=== PATIENT | female | born 1935 | race Two or more races ===

== ENCOUNTER 2021-12-07 11:13 | Inpatient (IN) | payer OTHER ==
[~2021-12-07] VITALS: Ht 167.6 cm; Wt 92.9 kg
[~2021-12-07 11:13] MED LIST: FELO10TA3 PO; LEVO88TA4 PO
[2021-12-07 13:36] LABS: Basophils # (auto) 0.1 10 ^3/uL (0-0.2); Basophils % (auto) 1.8 % (0.0-2.0); Eosinophils # (auto) 0.1 10 ^3/uL (0-0.8); Hematocrit 33.3 % (36.0-46.0); Lymphocytes # (auto) 0.8 10 ^3/uL (0.4-5.4); Lymphocytes % (auto) 17.8 % (10.0-50.0); Mean Corpuscular Hemoglobin 30.2 pg (28.0-32.0); Mean Corpuscular Hgb Conc. 32.9 g/dL (32.0-36.0); Mean Corpuscular Volume 91.6 fL (80.0-100.0); Monocytes # (auto) 0.2 10 ^3/uL (0-1.3); Monocytes % (auto) 4.6 % (0.0-12.0); Neutrophils # (auto) 3.5 10 ^3/uL (1.6-8.6); Neutrophils % (auto) 72.8 % (37.0-80.0); Nucleated Red Blood Cells % 0.2 %; Red Blood Cells 3.64 10^6/uL (4.0-5.20); Red Cell Distribution Width 14.8 % (11.8-14.3); White Blood Cell 4.8 10^3/uL (4.4-10.8)
[2021-12-07 13:56] LABS: Albumin 3.6 g/dL (3.4-5.0); Potassium 4.1 mmol/L (3.5-5.1)
[2021-12-07 14:04] LABS: BUN/Creatinine Ratio 30.5; Bilirubin, Total 0.6 mg/dL (0.2-1.0); Total Protein 6.6 g/dL (6.4-8.2)
[2021-12-07] MEDS ORDERED: FUROSEMIDE 40 MG/4 ML VIAL IV ONE (14:45)
[2021-12-07 17:19] LABS: Urine Bacteria FEW /hpf (None Seen); Urine Blood Negative /uL (Negative); Urine Specific Gravity 1.005 (1.001-1.035); Urine WBC 1 /hpf (0 - 5)
[2021-12-07 23:00] VITALS: BP 128/68
[2021-12-08] MEDS: ATORVASTATIN 20 MG TAB PO SCH ×2 (00:30→21:23)
[2021-12-08] MEDS: metFORMIN HYDROCHLORIDE 500 MG TAB PO SCH ×3 (00:31→21:23)
[2021-12-08 05:00] VITALS: BP 144/69
[2021-12-08 09:00] VITALS: BP 128/67
[2021-12-08] MEDS: LOSARTAN POTASSIUM 25 MG TAB PO SCH (11:31)
[2021-12-08] MEDS: POTASSIUM CHLORIDE 8 MEQ TAB PO SCH (11:32)
[2021-12-08] MEDS: FUROSEMIDE 20 MG TAB PO SCH (11:32)
[2021-12-08] MEDS: METOPROLOL TARTRATE 25 MG TAB PO SCH (11:33)
[2021-12-08] MEDS: CLOPIDOGREL BISULFATE 75 MG TAB PO SCH (11:34)
[2021-12-08] MEDS: cefTRIAXone 1GM/50ML D5W 50 ML IV SCH (14:11)
[2021-12-08] MEDS ORDERED: HALOPERIDOL LACTATE 5 MG/ML INJ VIAL IM PRN (20:00)
[2021-12-08] MEDS ORDERED: LORazepam 2MG/ML-1ML VIAL IV PRN (20:00)
[2021-12-08] MEDS: ACETAMINOPHEN 500 MG TAB PO PRN (21:24)
[2021-12-08 22:00] VITALS: BP 121/46
[2021-12-09] MEDS: LEVOTHYROXINE SODIUM 88 MCG TAB PO SCH ×2 (07:00→08:27)
[2021-12-09] MEDS: FUROSEMIDE 20 MG TAB PO SCH (08:26)
[2021-12-09] MEDS: ACETAMINOPHEN 500 MG TAB PO PRN ×2 (08:26→13:10)
[2021-12-09] MEDS: cefTRIAXone 1GM/50ML D5W 50 ML IV SCH (08:26)
[2021-12-09] MEDS: METOPROLOL TARTRATE 25 MG TAB PO SCH (08:28)
[2021-12-09] MEDS: LOSARTAN POTASSIUM 25 MG TAB PO SCH (08:28)
[2021-12-09] MEDS: POTASSIUM CHLORIDE 8 MEQ TAB PO SCH (08:28)
[2021-12-09] MEDS: CLOPIDOGREL BISULFATE 75 MG TAB PO SCH (08:29)
[2021-12-09] MEDS: metFORMIN HYDROCHLORIDE 500 MG TAB PO SCH ×2 (08:30→22:43)
[2021-12-09 09:00] VITALS: BP 151/96
[2021-12-09 09:47] LABS: Basophils # (auto) 0.1 10 ^3/uL (0-0.2); Basophils % (auto) 1.9 % (0.0-2.0); Eosinophils # (auto) 0.1 10 ^3/uL (0-0.8); Eosinophils % (auto) 1.3 % (0.0-7.0); Hematocrit 33.6 % (36.0-46.0); Hemoglobin 11.1 g/dL (12.2-16.2); Lymphocytes # (auto) 0.8 10 ^3/uL (0.4-5.4); Lymphocytes % (auto) 12.4 % (10.0-50.0); Mean Corpuscular Hemoglobin 30.3 pg (28.0-32.0); Mean Corpuscular Volume 91.9 fL (80.0-100.0); Monocytes # (auto) 0.3 10 ^3/uL (0-1.3); Monocytes % (auto) 5.3 % (0.0-12.0); Neutrophils # (auto) 5.1 10 ^3/uL (1.6-8.6); Neutrophils % (auto) 79.1 % (37.0-80.0); Red Blood Cells 3.65 10^6/uL (4.0-5.20); Red Cell Distribution Width 14.5 % (11.8-14.3); White Blood Cell 6.4 10^3/uL (4.4-10.8)
[2021-12-09 10:04] LABS: Albumin 3.7 g/dL (3.4-5.0); Calcium 8.6 mg/dL (8.5-10.1); Magnesium 1.4 mg/dL (1.6-2.6); Potassium 4.2 mmol/L (3.5-5.1)
[2021-12-09 10:10] LABS: BUN/Creatinine Ratio 31.8; Bilirubin, Total 0.6 mg/dL (0.2-1.0); Total Protein 6.9 g/dL (6.4-8.2)
[2021-12-09 13:00] VITALS: BP 123/53
[2021-12-09 22:00] VITALS: BP 119/64
[2021-12-09] MEDS: ATORVASTATIN 20 MG TAB PO SCH (22:44)
[2021-12-09] MEDS: MIRTAZAPINE 30 MG TAB PO PRN (22:44)
[2021-12-10 05:00] VITALS: BP 120/65
[2021-12-10 09:00] VITALS: BP 125/57
[2021-12-10] MEDS: metFORMIN HYDROCHLORIDE 500 MG TAB PO SCH ×2 (09:19→22:44)
[2021-12-10] MEDS: cefTRIAXone 1GM/50ML D5W 50 ML IV SCH (09:19)
[2021-12-10] MEDS: POTASSIUM CHLORIDE 8 MEQ TAB PO SCH (09:20)
[2021-12-10] MEDS: FUROSEMIDE 20 MG TAB PO SCH (09:21)
[2021-12-10] MEDS: CLOPIDOGREL BISULFATE 75 MG TAB PO SCH (09:21)
[2021-12-10] MEDS: METOPROLOL TARTRATE 25 MG TAB PO SCH (09:28)
[2021-12-10] MEDS: LOSARTAN POTASSIUM 25 MG TAB PO SCH (10:00)
[2021-12-10] MEDS: ACETAMINOPHEN 500 MG TAB PO PRN (16:06)
[2021-12-10 22:00] VITALS: BP 129/53
[2021-12-10] MEDS: ATORVASTATIN 20 MG TAB PO SCH (22:45)
[2021-12-11] MEDS: MIRTAZAPINE 30 MG TAB PO PRN (00:29)
[2021-12-11 05:05] VITALS: BP 131/41
[2021-12-11] MEDS: ACETAMINOPHEN 500 MG TAB PO PRN (05:07)
[2021-12-11] MEDS: LEVOTHYROXINE SODIUM 88 MCG TAB PO SCH (06:36)
[2021-12-11 08:46] VITALS: BP 131/69
[2021-12-11] MEDS: cefTRIAXone 1GM/50ML D5W 50 ML IV SCH (09:18)
[2021-12-11] MEDS: LOSARTAN POTASSIUM 25 MG TAB PO SCH (09:19)
[2021-12-11] MEDS: METOPROLOL TARTRATE 25 MG TAB PO SCH (09:19)
[2021-12-11] MEDS: metFORMIN HYDROCHLORIDE 500 MG TAB PO SCH ×2 (09:20→22:37)
[2021-12-11] MEDS: POTASSIUM CHLORIDE 8 MEQ TAB PO SCH (09:20)
[2021-12-11] MEDS: FUROSEMIDE 20 MG TAB PO SCH (09:21)
[2021-12-11] MEDS: CLOPIDOGREL BISULFATE 75 MG TAB PO SCH (09:21)
[2021-12-11 11:31] LABS: Folate (Folic Acid) 11.48 ng/mL (5.38-24)
[2021-12-11 14:11] VITALS: BP 109/54
[2021-12-11 17:00] VITALS: BP 120/79
[2021-12-11 18:11] LABS: Mean Corpuscular Volume 92.6 fL (80.0-100.0); White Blood Cell 5.9 10^3/uL (4.4-10.8)
[2021-12-11 18:22] LABS: Hematocrit 37.5 % (36.0-46.0); Hemoglobin 12.3 g/dL (12.2-16.2); Mean Corpuscular Hemoglobin 30.4 pg (28.0-32.0); Mean Corpuscular Hgb Conc. 32.9 g/dL (32.0-36.0); Red Blood Cells 4.05 10^6/uL (4.0-5.20); Red Cell Distribution Width 14.7 % (11.8-14.3)
[2021-12-11 18:26] LABS: Basophils % (manual) 0 (0.0-2.0); Blast Cells 0; Metamyelocytes % 0; Myelocytes % 0; Promyelocytes % 0; Reactive Lymphocytes 0
[2021-12-11 18:30] LABS: Albumin 3.6 g/dL (3.4-5.0); BUN/Creatinine Ratio 35.4; Calcium 8.9 mg/dL (8.5-10.1); Magnesium 1.8 mg/dL (1.6-2.6); Potassium 3.9 mmol/L (3.5-5.1)
[2021-12-11 18:32] LABS: Bilirubin, Total 0.6 mg/dL (0.2-1.0); Phosphorus 3.5 mg/dL (2.5-4.90); Total Protein 7.1 g/dL (6.4-8.2)
[2021-12-11 18:57] LABS: Band Neutrophils % (manual) 1; Eosinophils % (manual) 2 (0-7); Lymphocytes % (manual) 10 (10.0-50.0); Monocytes % (manual) 2 (0-12)
[2021-12-11 22:00] VITALS: BP 125/50
[2021-12-11] MEDS: ATORVASTATIN 20 MG TAB PO SCH (22:37)
[2021-12-12 05:00] VITALS: BP 123/56
[2021-12-12] MEDS: LEVOTHYROXINE SODIUM 88 MCG TAB PO SCH (07:07)
[2021-12-12 08:00] VITALS: BP 122/50
[2021-12-12] MEDS: cefTRIAXone 1GM/50ML D5W 50 ML IV SCH (09:30)
[2021-12-12] MEDS: metFORMIN HYDROCHLORIDE 500 MG TAB PO SCH (10:08)
[2021-12-12] MEDS: CLOPIDOGREL BISULFATE 75 MG TAB PO SCH (10:09)
[2021-12-12] MEDS: POTASSIUM CHLORIDE 8 MEQ TAB PO SCH (10:09)
[2021-12-12] MEDS: FUROSEMIDE 20 MG TAB PO SCH (10:10)
[2021-12-12] MEDS: LOSARTAN POTASSIUM 25 MG TAB PO SCH (10:11)
[2021-12-12] MEDS: METOPROLOL TARTRATE 25 MG TAB PO SCH (10:11)
[2021-12-12 12:00] VITALS: BP 120/75
[2021-12-12] MEDS ORDERED: LOS25T PO (13:43)
[2021-12-12] MEDS ORDERED: MIR30T PO (13:43)
[2021-12-12] MEDS ORDERED: MET25T PO (13:43)
[2021-12-12] MEDS ORDERED: METF-370 PO (13:43)
[2021-12-12] MEDS ORDERED: FUR20T PO (13:43)
[2021-12-12] MEDS ORDERED: CLOP75TA70 PO (13:43)
[2021-12-12] MEDS ORDERED: ATOR20TA50 PO (13:43)
[2021-12-12] MEDS ORDERED: POTA8TAB2 PO (13:43)
[2021-12-12 16:00] VITALS: BP 119/53
[2021-12-12 18:31] VITALS: BP 122/50
== END 2021-12-12 20:00 | disposition home health service (06) | DRG 689 ==
LOC: EDBD 11:13 → ER 11:13 → OVERFLOW 19:43 → CENTRAL 22:56 → EAST 12-08 14:26
PROVIDERS: ADMIT Internal Medicine Cardiovascular Disease; ATTEND Internal Medicine
DX: N39.0 Urinary tract infection, site not specified (principal); G93.41 Metabolic encephalopathy; R44.3 Hallucinations, unspecified; N17.9 Acute kidney failure, unspecified; G30.9 Alzheimer's disease, unspecified; F02.80 Dementia in other diseases classified elsewhere, unspecified severity, without behavioral disturbance, psychotic disturbance, mood disturbance, and anxiety; R09.02 Hypoxemia; M79.89 Other specified soft tissue disorders; J44.9 Chronic obstructive pulmonary disease, unspecified; E11.65 Type 2 diabetes mellitus with hyperglycemia; D64.9 Anemia, unspecified; E03.9 Hypothyroidism, unspecified; E78.5 Hyperlipidemia, unspecified; H91.90 Unspecified hearing loss, unspecified ear; I11.0 Hypertensive heart disease with heart failure; Z20.822 Contact with and (suspected) exposure to COVID-19; I25.10 Atherosclerotic heart disease of native coronary artery without angina pectoris; E66.9 Obesity, unspecified; I48.91 Unspecified atrial fibrillation; I50.9 Heart failure, unspecified; Z79.899 Other long term (current) drug therapy; Z80.0 Family history of malignant neoplasm of digestive organs; Z80.3 Family history of malignant neoplasm of breast; Z82.0 Family history of epilepsy and other diseases of the nervous system; Z82.49 Family history of ischemic heart disease and other diseases of the circulatory system; Z83.3 Family history of diabetes mellitus; Z85.3 Personal history of malignant neoplasm of breast; Z86.73 Personal history of transient ischemic attack (TIA), and cerebral infarction without residual deficits; Z90.710 Acquired absence of both cervix and uterus; Z99.81 Dependence on supplemental oxygen; Z68.33 Body mass index [BMI] 33.0-33.9, adult
CPT/HCPCS: 36415; 36600; 70450; 71045; 80053; 80061; 81001; 82607; 82746; 82805; 83036; 83735; 83880; 84100; 84443; 84484; 85007; 85025; 85027; 93005; 95819; 96374; 97163; G0378; J0696